=== PATIENT | male | born 1970 | race Caucasian/White ===

== ENCOUNTER 2020-06-21 18:56 | Emergency (ER) | payer OTHER ==
[~2020-06-21 18:56] MED LIST: PEPCID AC20 MG PO
[2020-06-21 21:51] LABS: BASOPHIL 0.8 % (0-2); EOSINOPHIL 1.9 % (0-5); HCT 45.5 % (42.0-52.0); HGB 15.4 g/dl (13.2-18.0); LYMPHOCYTE 25.9 % (15-48); MCH 30.1 pg (25.0-31.0); MCHC 33.8 g/dL (32.0-36.0); MCV 88.9 fL (78.0-100.0); MONOCYTE 7.5 % (0-12); MPV 9.8 fL (6.0-9.5); NEUTROPHIL 63.6 % (41-80); NRBC 0; PLT 341 K/uL (150-400); RBC 5.12 M/uL (4.70-6.00); RDW 13.5 % (11.5-14.0); WBC 11.5 K/uL (4.0-10.5)
[2020-06-21 22:06] LABS: BUN/CREAT RATIO (CALC) 22.3 RATIO; CREATININE 1.03 mg/dL (0.67-1.17); POTASSIUM 3.8 mmol/L (3.5-5.1)
[2020-06-21] MEDS ORDERED: CLEOCIN HCL300 MG PO ×2 (23:06→23:07)
[2020-06-21] MEDS ORDERED: NORCO 5-325 TA1 EACH PO (23:06)
== END 2020-06-21 23:24 | disposition home or self-care (01) ==
LOC: FER 18:56
PROVIDERS: Nurse Practitioner Family
DX: S61.451A Open bite of right hand, initial encounter (principal); Z88.0 Allergy status to penicillin; W55.01XA Bitten by cat, initial encounter; Y92.009 Unspecified place in unspecified non-institutional (private) residence as the place of occurrence of the external cause
CPT/HCPCS: 36415; 80048; 85025; 99283